=== PATIENT | female | born 1975 | race Caucasian/White ===

== ENCOUNTER 2022-07-05 14:20 | Emergency (ER) | payer BC, SELFPAY ==
--- NOTE | 2022-07-05 | ECG_ITS ---
Measurements Intervals [place] Rate: 73 P: 40 TN: 174 QRS: 44 QRSD: 92 T: 28 QT: 404 QTc: 446 Interpretive Statements SINUS RHYTHM INCOMPLETE RIGHT BUNDLE BRANCH BLOCK BASELINE ARTIFACT- II, III, AVF BORDERLINE ECG NO PREVIOUS ECG AVAILABLE FOR COMPARISON Electronically Signed On 07-08-2022 14:25:17 CDT by Joseph Hanson D.O.
[2022-07-05 14:30] VITALS: BP 152/94; PULSE 78; RESP 18; TEMP 36.8; O2SAT 100
--- NOTE | 2022-07-05 14:51 | ED.GENADULT ---
HPI - General Adult General Chief complaint: Anxiety Stated complaint: anxiety Time Seen by Provider: 07/05/22 14:37 Source: patient and RN notes reviewed Mode of arrival: ambulatory Limitations: no limitations History of Present Illness HPI narrative: Patient presents today complaining of a 10 day history of intermittent sternal chest tightness with increased anxiety. Patient has been feeling anxious recently related to 3 or 4 life changes related to job changes and children graduating college. States she has been more tearful recently as well. Denies radiation of the chest tightness. Denies sweats, nausea vomiting, numbness or tingling in the extremities, shortness of breath, or any additional symptoms. Patient takes bupropion for her anxiety and has been taking the same medication for several years. Related Data Home Medications Medication Instructions Recorded Confirmed bupropion HCl 300 mg 24 hr tablet, 300 mg PO DAILY 07/05/22 07/05/22 extended release Allergies Allergy/AdvReac Type Severity Reaction Status Date / Time No Known Allergies Allergy Verified 07/05/22 14:53 Review of Systems Review of Systems: CONSTITUTIONAL: Denies body aches, fever, chills, or sweats. EYES: Denies visual changes, redness, or discharge. ENT: Denies rhinorrhea, congestion, sore throat, or otalgia. CARDIOVASCULAR: Denies chest pain, palpitations, or edema.+ chest tightness RESPIRATORY: Denies cough or dyspnea. GASTROINTESTINAL: Denies abdominal pain, nausea, vomiting, or diarrhea. GENITOURINARY: Denies dysuria or hematuria. SKIN: Denies rash, itching, or wounds. MUSCULOSKELETAL: Denies back pain, joint pain, or myalgia. NEUROLOGIC: Denies headache, numbness, tingling, or weakness. PSYCH: + increased anxiety [facility] Past Medical History Medical History (Updated 07/05/22 @ 14:59 by Darcie Nunez, KARISHMA, BC) Anxiety Family History Family History Sibling Family history of mental disorder Social History Social History Smoking status: Former smoker Second hand tobacco smoke exposure: No Smoking end date: 02/16/10 Alcohol intake: current Comments At time of signature, I have reviewed and agree with nursing past medical, surgical, social and family history unless otherwise noted. Please see nursing chart for further information. There is no relevant family history pertinent to the presenting complaint Exam Narrative: GENERAL: Well-appearing, well-nourished, tearful. HEAD: Normocephalic, atraumatic. EYES: EOMI. No redness or drainage. Conjunctivae normal. ENT: Mucous membranes pink and moist. NECK: Normal AROM. Supple. No lymphadenopathy. CHEST: No respiratory distress. Clear to auscultation. Chest is nontender HEART: Regular rate and rhythm. No murmur appreciated. Normal peripheral pulses. EXTREMITIES: Normal range of motion. No edema. Hand relocation director equal and strong. Patient has a slight tremor, likely related to anxiety SKIN: Warm, dry, no rash. Capillary refill normal. Normal skin turgor. NEURO: No focal deficits. Alert and oriented x3. Gait steady. PSYCH: Anxious. Course Course Level of Care: Express Care Visit Vital Signs Vital signs: Vital Signs Temperature 98.2 F 07/05/22 14:30 Pulse Rate 78 07/05/22 14:30 Respiratory Rate 18 07/05/22 14:30 Blood Pressure 152/94 H 07/05/22 14:30 Pulse Oximetry 100 07/05/22 14:30 Oxygen Delivery Room Air 07/05/22 14:30 Temperature 98.2 F 07/05/22 14:30 Pulse Rate 78 07/05/22 14:30 Respiratory Rate 18 07/05/22 14:30 Blood Pressure 152/94 H 07/05/22 14:30 Pulse Oximetry 100 07/05/22 14:30 Oxygen Delivery Room Air 07/05/22 14:30 Reviewed. Pt has been instructed to follow up with her PCP regarding her elevated blood pressure today. Medical Decision Making MDM Narrative Medical de
== END 2022-07-05 15:05 | disposition home or self-care (01) ==
PROVIDERS: Emergency Provider Nurse Practitioner; PCP Physician Assistant
DX: F41.0 Panic disorder [episodic paroxysmal anxiety] (principal); Z87.891 Personal history of nicotine dependence; I45.10 Unspecified right bundle-branch block; F41.9 Anxiety disorder, unspecified
CPT/HCPCS: 93005; 99213; G0463

== ENCOUNTER → 2023-03-02 10:15 | Outpatient (CLI) | payer BC, SELFPAY ==
--- NOTE | ~2023-03-02 | US_ITS ---
Pelvic ultrasound. Clinical History: Pelvic pain Technique: Realtime transabdominal and transvaginal scanning of the pelvis was performed. Color flow Doppler and Doppler spectral analysis were performed. Findings: The uterus is anteverted, and measures 8.5 x 4.8 x 5.2 cm. The endometrial stripe has a th ickness of 7 mm. IUD in satisfactory position. Posterior, partially exophytic fibroid measures 2.2 cm in maximum diameter. Lower uterine segment intramural fibroid measures 2.2 cm in maximum diameter.. The right ovary measures 2.7 x 1.1 x 1.5 cm. No significant right ovarian or adnexal mass is seen. The left ovary measures 3.9 x 2.2 x 3.8 cm. Simple left ovarian cyst measures 2.9 cm in diameter. There is no evidence of free fluid in the cul de sac. Impression: Uterine fibroids, as above. IUD in place. 2.9 cm simple left ovarian cyst. Reviewed, dictated and finalized at [facility]. L DESIGNER Impression: Uterine fibroids, as above. IUD in place. 2.9 cm simple left ovarian cyst.
== END ==
PROVIDERS: PCP Advanced Practice Midwife; Visit Provider Advanced Practice Midwife
DX: D25.1 Intramural leiomyoma of uterus (principal); N83.292 Other ovarian cyst, left side; Z97.5 Presence of (intrauterine) contraceptive device
CPT/HCPCS: 76830

== ENCOUNTER 2023-06-03 10:16 | Emergency (ER) | payer BC, SELFPAY ==
[2023-06-03 10:32] VITALS: BP 119/63; PULSE 75; RESP 16; TEMP 36.9; O2SAT 99
--- NOTE | 2023-06-03 10:43 | ED.URI ---
HPI - URI/Sore Throat General Chief Complaint: Upper Respiratory Infection Stated Complaint: SINUS PRESSURE/COUGH Time Seen by Provider: 06/03/23 10:43 Source: patient Mode of arrival: ambulatory Limitations: no limitations History of Present Illness HPI Narrative: 48 yo F presents with c/o sinus congestion/pressure, PND, pressure to both ears and sore lymph nodes to neck. Denies sore throat. Afebrile. Not taking any OTC allergy meds or pain meds to treat symptoms. All systems reviewed and negative except as noted above. Related Data Home Medications Medication Instructions Recorded Confirmed bupropion HCl 300 mg 24 hr tablet, 300 mg PO DAILY 07/05/22 06/03/23 extended release semaglutide 0.25 mg or 0.5 mg (2 See Rx Instructions .Route .COMPLEX 06/03/23 06/03/23 mg/3 mL) subcutaneous pen injector Allergies Allergy/AdvReac Type Severity Reaction Status Date / Time No Known Allergies Allergy Verified 06/06/23 08:26 Review of Systems Review of Systems: CONSTITUTIONAL: Denies fever, chills, or sweats. EYES: Denies visual changes, redness, or discharge. ENT: Reports rhinorrhea, congestion. Denies sore throat. Reports otalgia. CARDIOVASCULAR: Denies chest pain, palpitations, or edema. RESPIRATORY: Denies cough or dyspnea. GASTROINTESTINAL: Denies abdominal pain, nausea, vomiting, or diarrhea. GENITOURINARY: Denies dysuria or hematuria. SKIN: Denies rash or itching. MUSCULOSKELETAL: Denies back pain, joint pain, or myalgia. NEUROLOGIC: Denies headache, numbness, or weakness. PSYCHIATRIC: Denies anxiety or depression. All other systems reviewed are negative, except as documented in HPI. ON LICENSE OF [facility] Past Medical History Medical History Anxiety Family History Family History Sibling Family history of mental disorder Social History Social History Smoking status: Former smoker Second hand tobacco smoke exposure: No Smoking end date: 02/16/10 Alcohol intake: current Comments At time of signature, agree with nursing past medical, surgical, social and family history. There is no relevant family history pertinent to the presenting complaint. Exam Narrative: GENERAL: This is a well-nourished, well-developed patient, in no apparent distress. HEAD: normocephalic, atraumatic. EYES: PERRL. Sclera clear/white. Vision is grossly intact. EARS: External ears normal, auditory canals clear and without drainage, TMs normal without perforation. Hearing grossly intact. NOSE: External nose normal with Mild congestion with erythema to nares. No frontal or maxillary sinus tenderness on palpation. THROAT: Mucous membranes moist, postnasal drainage without erythema or swelling. NECK: Neck supple, non-tender without lymphadenopathy, masses or thyromegaly. CARDIOVASCULAR: Regular rate and rhythm without murmurs, gallops, or rubs. RESPIRATORY: Clear to auscultation. Breath sounds equal bilaterally. No wheezes, rales, or rhonchi. SKIN: warm, Dry, intact with no suspicious lesions or rash, good texture and turgor. NEURO: awake, alert, and oriented to person, place and time. There were no obvious focal neurologic abnormalities. EXTREMITIES: No joint tenderness, effusion, or edema noted. Course Course Level of Care: Express Care Visit Vital Signs Vital signs: Vital Signs Temperature 36.9 C 06/03/23 10:32 Pulse Rate 75 06/03/23 10:32 Respiratory Rate 16 06/03/23 10:32 Blood Pressure 119/63 06/03/23 10:32 Pulse Oximetry 99 06/03/23 10:32 Temperature 36.9 C 06/03/23 10:32 Pulse Rate 75 06/03/23 10:32 Respiratory Rate 16 06/03/23 10:32 Blood Pressure 119/63 06/03/23 10:32 Pulse Oximetry 99 06/03/23 10:32 Reviewed MDM - URI/Sore Throat MDM Narrative Medical decision making narrative: patient well-a
== END 2023-06-03 10:57 | disposition home or self-care (01) ==
PROVIDERS: Emergency Provider Nurse Practitioner Family
DX: J01.90 Acute sinusitis, unspecified (principal); Z87.891 Personal history of nicotine dependence; F41.9 Anxiety disorder, unspecified
CPT/HCPCS: 99211; 99213; G0463

== ENCOUNTER 2023-06-06 08:12 | Emergency (ER) | payer BC, SELFPAY ==
--- NOTE | 2023-06-06 08:18 | ED_ITS ---
HPI - URI/Sore Throat General Chief Complaint: Upper Respiratory Infection Stated Complaint: Cough,Sore Throat,Sinus Problems Time Seen by Provider: 06/06/23 08:18 Source: patient Mode of arrival: ambulatory Limitations: no limitations History of Present Illness HPI Narrative: Patient is a 48-year-old female that presents with 1 week of cough, congestion and new onset sore throat. Patient states she is having more frequent coughing fits lasting several hours. Patient was seen 3 days ago and started on symptomatic medication. Patient reports she is just getting worse. Denies any fever, chills, nausea, vomiting, diarrhea. Related Data Home Medications Medication Instructions Recorded Confirmed bupropion HCl 300 mg 24 hr tablet, 300 mg PO DAILY 07/05/22 06/03/23 extended release semaglutide 0.25 mg or 0.5 mg (2 See Rx Instructions .Route .COMPLEX 06/03/23 06/03/23 mg/3 mL) subcutaneous pen injector Allergies Allergy/AdvReac Type Severity Reaction Status Date / Time No Known Allergies Allergy Verified 06/06/23 08:26 Review of Systems Review of Systems: All systems reviewed & are unremarkable except as noted in HPI and below Constitutional: Constitutional: Denies body ache(s), Denies chills, Denies fatigue, Denies fever(s), Denies headache(s), Denies malaise and Denies weakness Eyes: Eyes: Denies blurry vision, Denies itchy eyes and Denies loss of vision ENT: Denies otalgia, Denies headache(s), Reports nasal congestion, Denies sinus pain and Reports sore throat Cardiovascular: Cardiovascular: Denies chest pain, Denies irregular heart rhythm and Denies dyspnea Respiratory: Respiratory: Reports cough and Denies dyspnea Gastrointestinal: Gastrointestinal: Denies abdominal pain, Denies diarrhea, Denies nausea and Denies vomiting Musculoskeletal: Musculoskeletal: Denies back pain, Denies myalgias and Denies arthralgias Integumentary/Breasts: Skin/Breast: Denies pruritus and Denies rash Neurologic: Denies headache(s), Denies loss of vision and Denies weakness Psychiatric: Psychiatric: Reports no additional psychiatric complaints Endocrine: Endocrine: Denies fatigue Allergic/Immunologic: Allergic/Immunologic: Denies itchy eyes PMFSH Past Medical History Medical History Anxiety Family History Family History Sibling Family history of mental disorder Social History Social History Smoking status: Former smoker Second hand tobacco smoke exposure: No Smoking end date: 02/16/10 Alcohol intake: current Comments At time of signature, agree with nursing past medical, surgical, social and family history. There is no relevant family history pertinent to the presenting complaint. Exam Const: General: cooperative, healthy appearing, comfortable, no acute distress and well nourished Nutritional Appearance: well nourished Orientation/consciousness: patient oriented x3 Limitations: no limitations HENMT: Head: normal to inspection, normocephalic and atraumatic Ears: hearing grossly normal bilaterally, external ears normal, EAC's normal, no periauricular adenopathy and TM abnormal wth effusion serous bilateral Face/Nose/Sinus: Normal external nose present, Abnormal mucous membranes and turbinates present erythematous bilateral and diffuse, normal facial exam, sinuses nontender and face symmetric Face and sinus: normal facial exam, sinuses nontender and face symmetric Mouth: Yes Normal oral and palatal mucosa present, Yes lip normal, Yes tongue normal, Yes Normal salivary glands and ducts present, Yes oropharynx normal and Yes moist mucous membranes Teeth and gingiva: dentition normal Throat: posterior oropharynx normal, tonsils normal and uvula midline Eyes: General: appearance normal, both eyes and all related structures Alignment and Position: alignment normal and position normal Periorbital: periorbital findings normal Eyelids: eyelids normal Pupils: Equal, round and reactive pupils present Neck: Neck: normal visual inspection, full ROM, no lymphadenopathy and supple Chest: Chest palpation & inspection: normal inspection of the chest and normal palpation of entire chest wall Resp: Effort & Inspection: normal respiratory effort and able to speak in complete sentences Auscultation: clear to auscultation bilaterally, no crackles, no rales, no rhonchi and no wheezes Cardio: Rate: regular rate Rhythm: regular rhythm Heart sounds: S1 normal heart sound present and S2 normal heart sound present GI: Inspection: normal to inspection Skin: General skin exam: normal color and no rashes or lesions noted Neuro: General: patient oriented x3 and moves all extremities Cranial nerves: Yes Equal, round and reactive pupils present Speech: normal speech Gait exam (Neuro): Normal gait present Extrem: General: normal to inspection, full ROM and no edema Psych: Appearance: grossly normal and well kempt Mental Status: mental status grossly normal Speech and movement: Normal speech and movement present Affect: normal affect Attitude: cooperative Thought process: Normal thought process present Course Course Emergency Course: Patient is aware of diagnosis, understands and agrees to treatment plan. Anticipatory guidance given. Patient agrees to follow-up as directed and is aware of reasons to seek care at the emergency department. Portions of this record may have been created with voice recognition software Level of Care: Express Care Visit Vital Signs Vital signs: Vital Signs Temperature 36.3 C L 06/06/23 08:34 Pulse Rate 89 06/06/23 08:34 Respiratory Rate 16 06/06/23 08:34 Blood Pressure 110/67 06/06/23 08:34 Pulse Oximetry 99 06/06/23 08:34 Temperature 36.3 C L 06/06/23 08:34 Pulse Rate 89 06/06/23 08:34 Respiratory Rate 16 06/06/23 08:34 Blood Pressure 110/67 06/06/23 08:34 Pulse Oximetry 99 06/06/23 08:34 Reviewed MDM - URI/Sore Throat MDM Narrative Medical decision making narrative: Discharge instructions reviewed with patient, as well as provided in writing per nursing staff. The instructions also include specific and strict return/GO TO THE ER as well as f/u information. All questions have been answered, and the patient deny any further questions with discharge and discharge plan. Differential diagnosis considered: Flores virus, strep pharyngitis, allergic rhinitis, upper respiratory tract infection, sinusitis, rhinosinusitis, nasopharyngitis. viral pharyngitis, otitis media, otitis externa, otitis effusion, foreign body, cerumen impaction, viral syndrome, and influenza.? Exam findings show no acute concerns or changes; patient is non-toxic appearing and is in no distress.? Patient is appropriate for outpatient treatment and follow- up.? Medical Records Attestation: I reviewed the patient's medical records. Lab Data Attestation: I reviewed the patient's lab results. Labs: Strep Screen Presumptive Negative *(Reference Range: Negative)* Discharge Plan Discharge Clinical Impression: Upper respiratory infection with cough and congestion Patient Disposition: Home, Self-Care Condition: Stable Instructions: Upper Respiratory Infection (ED) Additional Instructions: Take antibiotic as prescribed. Take steroids in the morning with food. Use Tessalon Perles as needed for cough. Use inhaler with spacer as needed. Other symptomatic treatments include: -Alternate Tylenol and Motrin per package directions for fever or pain. -Antihistamine medication such as Benadryl at night and Zyrtec/Claritin/Marjorie during the day can help improve symptoms. -Use Flonase twice a day for 5 days then daily to help reduce the inflammation and dry up your sinuses. -You can also use Sudafed or Mucinex. Be sure to drink plenty of water with these medications at least 8 ounces with every dose and it is important to drink 8 to 10 glasses of water per day. Water is a natural decongestant -Eat and drink things that are easy to swallow, like tea or soup, or popsicles. -Oral rinses such as: Salt water gargles and/or may use topical anesthetic (eg. Chloraseptic spray) or lozenges to relieve dryness or throat pain). -Frequent hand washing or hand vocational technical education teacher is one of the best ways to prevent spread of infection. -Using a vaporizer or humidifier at night will also help thin secretions and help with coughing up phlegm. -Follow up with primary care provider in 3-5 days if condition is not improving - For new or worsening symptoms go directly to the nearest ER Prescriptions: New albuterol sulfate 90 mcg/actuation HFA aerosol inhaler 2 puff inhalation QID PRN (Reason: shortness of breath or wheezing) Qty: 6.7 0RF (DME) Aerochamber MV Spacer See Rx Instructions .Route Qty: 1 0RF Rx Instructions: As directed benzonatate 200 mg capsule 200 mg PO TID Qty: 20 0RF prednisone 20 mg tablet 40 mg PO DAILY 5 Days Qty: 10 0RF doxycycline monohydrate 100 mg tablet 100 mg PO BID 5 Days Qty: 10 0RF No Action bupropion HCl 300 mg tablet extended release 24 hr 300 mg PO DAILY hydroxyzine HCl 50 mg tablet 50 mg PO QID PRN (Reason: anxiety) Qty: 20 0RF semaglutide 0.25 mg or 0.5 mg (2 mg/3 mL) Pen Injector See Rx Instructions .ROUTE .COMPLEX Rx Instructions: for 4 weeks benzonatate 200 mg capsule 200 mg PO TID PRN (Reason: cough) Qty: 20 0RF fluticasone propionate [Flonase Allergy Relief] 50 mcg/actuation spray,suspension 1 spray intranasal BID Qty: 16 0RF Rx Instructions: administer into each nostril Claritin-D 12 Hour 5-120 mg tablet extended release 12 hr 1 tablet PO Q12H PRN (Reason: nasal congestion) Qty: 20 0RF Follow-up/Referrals: PHYSICIAN,TRANSITION TEACHER [Primary Care Provider] - Niesha Ferguson DO [Physician] - 3 Days Stand Alone Forms: Work/School Release IP Time of Disposition: 09:02
[2023-06-06 08:34] VITALS: BP 110/67; PULSE 89; RESP 16; TEMP 36.3; O2SAT 99
== END 2023-06-06 09:07 | disposition home or self-care (01) ==
PROVIDERS: Emergency Provider Nurse Practitioner Family
DX: J06.9 Acute upper respiratory infection, unspecified (principal); Z87.891 Personal history of nicotine dependence; F41.9 Anxiety disorder, unspecified
CPT/HCPCS: 87081; 87880; 99213; G0463

== ENCOUNTER 2023-08-04 15:54 | Emergency (ER) | payer BC, SELFPAY ==
--- NOTE | ~2023-08-04 | XR_ITS ---
EXAMINATION: XR ribs LT 2V Exam Date/Time: 08/04/2023 16:10 CDT HISTORY: fall today left lower anterior rib pain Comparison: 02/19/2016. RESULT: Lines, tubes, and devices: Left breast implant (right breast not included in the field of view). Lungs and pleura: Clear. Cardiothymic silhouette: Stable. Other: No acute osseous or upper abdominal finding. Mild scoliosis. IMPRESSION: No acute cardiopulmonary process. No acute osseous finding in the left ribs. Reviewed, dictated and finalized at location [facility].
--- NOTE | 2023-08-04 15:57 | ED.FEMALEGU ---
HPI - Female Genitourinary General Chief complaint: Urogenital-Female Stated complaint: Uti Symptoms/Side Pain Time Seen by Provider: 08/04/23 15:56 Source: patient Mode of arrival: ambulatory Limitations: no limitations History of Present Illness HPI Narrative: Patient is a 40-year-old female who presents with 3 days of urinary urgency, frequency and burning with urination. Patient also reports vaginal spotting. Patient has IUD and has not had period in a year. Patient denies any low back pain but does have pelvic pressure. Denies any fever, chills, nausea, vomiting, diarrhea. Patient also coming in for left rib pain after falling into tailgate 1 hour ago. Patient states it hurts to cough, laugh or twist. Patient has not taken anything for symptoms. MD elicited complaint: dysuria Related Data Home Medications Medication Instructions Recorded Confirmed bupropion HCl 300 mg 24 hr tablet, 300 mg PO DAILY 07/05/22 06/06/23 extended release semaglutide 0.25 mg or 0.5 mg (2 See Rx Instructions .Route .COMPLEX 06/03/23 06/06/23 mg/3 mL) subcutaneous pen injector Allergies Allergy/AdvReac Type Severity Reaction Status Date / Time No Known Allergies Allergy Verified 06/06/23 08:26 Review of Systems Review of Systems: All systems reviewed & are unremarkable except as noted in HPI and below Constitutional: Constitutional: Denies chills, Denies fever(s), Denies headache(s), Denies malaise and Denies weakness Eyes: Eyes: Denies change in vision, Denies eye discharge and Denies irritation ENT: Denies otalgia, Denies headache(s), Denies nasal congestion, Denies nasal discharge, Denies sinus pain and Denies sore throat Cardiovascular: Cardiovascular: Denies chest pain, Denies edema, Denies palpitations and Denies dyspnea Respiratory: Respiratory: Denies cough, Denies dyspnea and Reports other (Rib pain) Gastrointestinal: Gastrointestinal: Denies abdominal pain, Denies diarrhea, Denies nausea and Denies vomiting Genitourinary: Genitourinary: Denies hematuria, Reports nocturia, Reports dysuria, Denies flank pain and Reports urinary urgency Musculoskeletal: Musculoskeletal: Denies back pain and Denies numbness Integumentary/Breasts: Skin/Breast: Denies pruritus and Denies rash Neurologic: Denies headache(s), Denies numbness and Denies weakness Psychiatric: Psychiatric: Reports no additional psychiatric complaints Endocrine: Endocrine: Denies palpitations PMFSH Past Medical History Medical History Anxiety Family History Family History Sibling Family history of mental disorder Social History Social History Smoking status: Former smoker Second hand tobacco smoke exposure: No Smoking end date: 02/16/10 Alcohol intake: current Comments At time of signature, agree with nursing past medical, surgical, social and family history. There is no relevant family history pertinent to the presenting complaint. Exam Const: General: cooperative, healthy appearing, comfortable, no acute distress and well nourished Nutritional Appearance: well nourished Orientation/consciousness: patient oriented x3 HENMT: Head: normocephalic and atraumatic Ears: external ears normal Face/Nose/Sinus: Normal external nose present, Normal nares present and normal facial exam Face and sinus: normal facial exam Eyes: General: appearance normal, both eyes and all related structures Pupils: Equal, round and reactive pupils present EOM: EOMs intact bilaterally Neck: Neck: normal visual inspection, full ROM and supple Chest: Chest palpation & inspection: normal inspection of the chest and tenderness rib left mid-clavicular line involving the 6th rib, involving the 7th rib and involving the 8th rib Resp: Effort & Inspection: normal respiratory effort and able to speak
[2023-08-04 16:02] VITALS: BP 134/76; PULSE 73; RESP 20; TEMP 36.6; O2SAT 100
== END 2023-08-04 16:45 | disposition home or self-care (01) ==
PROVIDERS: Emergency Provider Nurse Practitioner Family
DX: N30.00 Acute cystitis without hematuria (principal); B96.20 Unspecified Escherichia coli [E. coli] as the cause of diseases classified elsewhere; S20.212A Contusion of left front wall of thorax, initial encounter; W22.8XXA Striking against or struck by other objects, initial encounter; F41.9 Anxiety disorder, unspecified; Z87.891 Personal history of nicotine dependence
CPT/HCPCS: 71100; 81003; 87077; 87086; 87088; 87186; 99213; G0463

== ENCOUNTER 2023-08-20 09:15 | Emergency (ER) | payer BC, SELFPAY ==
--- NOTE | 2023-08-20 09:17 | ED.FALL ---
HPI - Fall General Chief Complaint: Fall Stated Complaint: FALL/L RIB INJURY Time Seen by Provider: 08/20/23 09:45 Source: patient and RN notes reviewed Mode of arrival: ambulatory Limitations: no limitations History of Present Illness HPI Narrative: 40-year-old female presents with concern for ongoing left anterior rib pain. She reports 17 days ago she fell into a tailgate of a truck causing pain under her left breast. She was seen here at that time and had a negative rib x-ray. She reports she has been taking 800 mg ibuprofen intermittently, no more than once a day which does help symptoms briefly. She reports the pain is waking her up at night. She was also seen and treated for urinary tract infection that day. She reports her symptoms of urinary tract infection are resolved. She denies any fever, hematuria, back ache, stomach ache, nausea, vomiting, dysuria, frequency, urgency. She denies shortness of breath. She reports rib pain is exacerbated by coughing, deep breathing, certain motions. MD complaint: fall Related Data Home Medications Medication Instructions Recorded Confirmed semaglutide 0.25 mg or 0.5 mg (2 See Rx Instructions .Route .COMPLEX 06/03/23 08/20/23 mg/3 mL) subcutaneous pen injector Allergies Allergy/AdvReac Type Severity Reaction Status Date / Time No Known Allergies Allergy Verified 08/20/23 09:32 Review of Systems Review of Systems: CONSTITUTIONAL: Denies malaise, chills, sweats, or fever. CARDIOVASCULAR: Denies chest pain, palpitations, or edema. RESPIRATORY: Denies cough or dyspnea. SKIN: Denies rash or itching, bruising, redness, swelling. MUSCULOSKELETAL: Reports left anterior rib pain NEUROLOGIC: Denies numbness, weakness All systems reviewed & are unremarkable except as noted in HPI and below [facility] Past Medical History Medical History Anxiety Family History Family History Sibling Family history of mental disorder Social History Social History Smoking status: Former smoker Second hand tobacco smoke exposure: No Smoking end date: 02/16/10 Alcohol intake: current Comments At time of signature, agree with nursing past medical, surgical, social and family history. There is no relevant family history pertinent to the presenting complaint Exam Narrative: GENERAL: Well-appearing, well-nourished, and in no acute distress. HEAD: Normocephalic, atraumatic. EYES: PERRLA, sclera clear, and EOMI. No nystagmus. ENT: Nares clear. Mucous membranes moist. NECK: Supple. CHEST: No respiratory distress. Clear to auscultation. No bony deformities, no asymmetry. Speaks in full sentences. Tenderness under the left breast HEART: Regular rate and rhythm. No murmur heard. Normal peripheral pulses. ABDOMEN: Soft, nontender, nondistended, normal active bowel sounds, no palpable masses. No CVA tenderness EXTREMITIES: Normal range of motion. No edema. Normal strength and sensation. SKIN: Warm, dry, no visible rash. NEURO: Alert and oriented x3. PSYCH: Normal mood and affect Course Course Emergency Course: Patient was treated with Bactrim for urinary tract infection, urine culture showed resistance to Bactrim however due to clerical error there was no change in antibiotic made for the patient. Although patient is not reporting urine symptoms I did check a urinalysis which appeared normal, just to be safe I will do a culture of her urine due to the previous resistance. Anticipatory guidance given. Patient agrees to follow-up as directed and is aware of reasons to seek care at the emergency department. Portions of this record may have been created with voice recognition software Level of Care: Express Care Visit Vital Signs Vital signs: Reviewed. MDM - Fall MDM Narrative Medical decision making narrative:
[2023-08-20 09:33] VITALS: BP 133/86; PULSE 64; RESP 16; TEMP 36.4; O2SAT 100
[2023-08-20 09:44] LABS: EDUAAPPEAR Clear; EDUABILI Negative; EDUABLOOD Negative; EDUACOLOR1 Yellow; EDUAGLUCOSE Negative; EDUAKETONE Negative; EDUALEUKO Negative; EDUANITRATE Negative; EDUAPROTEIN Negative; EDUASPGRAVITY 1.015; EDUAUROBILI 0.2
== END 2023-08-20 10:03 | disposition home or self-care (01) ==
PROVIDERS: Emergency Provider Nurse Practitioner
DX: R07.81 Pleurodynia (principal); Z87.891 Personal history of nicotine dependence
CPT/HCPCS: 81003; 87086; 99213; G0463

== ENCOUNTER 2024-04-07 08:28 | Emergency (ER) | payer BC, SELFPAY ==
[2024-04-07 08:41] VITALS: BP 118/81; PULSE 97; RESP 16; TEMP 37.3; O2SAT 99
--- NOTE | 2024-04-07 08:47 | ED_ITS ---
HPI - URI/Sore Throat General Chief Complaint: Upper Respiratory Infection Stated Complaint: Flu Symptoms Time Seen by Provider: 04/07/24 08:47 Source: patient Mode of arrival: ambulatory Limitations: no limitations History of Present Illness HPI Narrative: 49-year-old female presents with complaint of headache, body aches, fatigue, congestion and coughing for 3 days. Denies nausea vomiting diarrhea. Taking ibuprofen to treat pain and fever. Patient reports recent face lift surgery. No complaints of surgical complications at this time. All systems reviewed and negative except as noted above. Related Data Home Medications ?Medication ?Instructions ?Recorded ?Confirmed ?Last Taken ?Type semaglutide 0.25 mg or 0.5 mg (2 See Rx Instructions .Route .COMPLEX 06/03/23 04/07/24 Unknown History mg/3 mL) subcutaneous pen injector hydrocodone 5 mg-acetaminophen 325 tablet 04/07/24 Unknown History mg tablet minoxidil 2.5 mg tablet mg 04/07/24 Unknown History Allergies Allergy/AdvReac Type Severity Reaction Status Date / Time No Known Allergies Allergy Verified 04/07/24 08:38 Review of Systems Review of Systems: CONSTITUTIONAL: Reports fever, chills, or sweats. EYES: Denies visual changes, redness, or discharge. ENT: Reports rhinorrhea, congestion, sore throat. Denies otalgia. CARDIOVASCULAR: Denies chest pain, palpitations, or edema. RESPIRATORY: Reports cough. Denies dyspnea. GASTROINTESTINAL: Denies abdominal pain, nausea, vomiting, or diarrhea. GENITOURINARY: Denies dysuria or hematuria. SKIN: Denies rash or itching. MUSCULOSKELETAL: Denies back pain, joint pain, or myalgia. NEUROLOGIC: Denies headache, numbness, or weakness. PSYCHIATRIC: Denies anxiety or depression. All other systems reviewed are negative, except as documented in HPI. [facility] Past Medical History Medical History Anxiety Family History Family History Sibling Family history of mental disorder Social History Social History Smoking status: Former smoker Second hand tobacco smoke exposure: No Smoking end date: 02/16/10 Alcohol intake: current Comments At time of signature, agree with nursing past medical, surgical, social and family history. There is no relevant family history pertinent to the presenting complaint. Exam Narrative: GENERAL: This is a well-nourished, well-developed patient, ill-appearing but no acute distress HEAD: normocephalic, atraumatic. EYES: PERRL. Sclera clear/white. Vision is grossly intact. EARS: External ears normal, auditory canals clear and without drainage, TMs normal without perforation. Hearing grossly intact. NOSE: External nose normal with clear nasal drainage, mild congestion THROAT: Mucous membranes moist, posterior pharynx clear. NECK: Neck supple, non-tender without lymphadenopathy, masses or thyromegaly. CARDIOVASCULAR: Regular rate and rhythm without murmurs, gallops, or rubs. RESPIRATORY: Clear to auscultation. Breath sounds equal bilaterally. No wheezes, rales, or rhonchi. SKIN: warm, Dry, intact with no suspicious lesions or rash, good texture and turgor. NEURO: awake, alert, and oriented to person, place and time. There were no obvious focal neurologic abnormalities. EXTREMITIES: No joint tenderness, effusion, or edema noted. Course Course Level of Care: Express Care Visit Vital Signs Vital signs: Vital Signs Temperature 37.3 C 04/07/24 08:41 Pulse Rate 97 04/07/24 08:41 Respiratory Rate 16 04/07/24 08:41 Blood Pressure 118/81 04/07/24 08:41 Pulse Oximetry 99 04/07/24 08:41 Temperature 37.3 C 04/07/24 08:41 Pulse Rate 97 04/07/24 08:41 Respiratory Rate 16 04/07/24 08:41 Blood Pressure 118/81 04/07/24 08:41 Pulse Oximetry 99 04/07/24 08:41 Reviewed MDM - URI/Sore Throat MDM Narrative Medical decision making narrative: Positive influenza a. Patient is alert, nontoxic. Recommend [id number] DayQuil NyQuil cold and flu, continue ibuprofen, hydrate. Please be advised this is a medical document. It is intended for [id number] communication. It is written in medical language and may contain unfamiliar abbreviations or verbiage. Medical documents are intended to carry relevant information, facts as evident, and the clinical opinion of the practitioner at the time of the encounter. This report may have been done utilizing a voice recognition system. Attempts have been made to correct errors. However, there may be uncorrected grammatical, spelling, and recognition errors present. The file time of this note does not necessarily represent the time of service. Differential Diagnosis Differential diagnosis: Likely upper respiratory infection, sinusitis, viral infection and influenza Lab Data Labs: Lab Results 04/07/24 Range/Units 08:47 POC Influenza A Ag Positive (Negative) POC Influenza B Ag Negative (Negative) POC SARS CoV-2 Ag Negative (Negative) Discharge Plan Discharge Clinical Impression: Influenza A Patient Disposition: Home, Self-Care Condition: Stable Instructions: Influenza (ED) Additional Instructions: You were positive for influenza today. Influenza is a virus and symptoms may last 10-14 days. Taking [id number] medications to treat her symptoms such as DayQuil NyQuil cold and flu. Take as directed on packaging. Take ibuprofen every 6-8 hours as needed for pain and fever. Drink at least 64 oz of water a day. Follow-up with your doctor if symptoms are not improving. Patient Language: Jordanian Prescriptions: New ibuprofen 800 mg tablet 800 mg PO TID PRN (Reason: pain) Qty: 30 0RF No Action cyclobenzaprine 10 mg tablet 10 mg PO TID PRN (Reason: muscle spasm) Qty: 20 0RF ibuprofen 800 mg tablet 800 mg PO Q6H PRN (Reason: pain) Qty: 30 0RF hydrocodone-acetaminophen 5-325 mg tablet minoxidil 2.5 mg tablet semaglutide 0.25 mg or 0.5 mg (2 mg/3 mL) Pen Injector See Rx Instructions .ROUTE .COMPLEX Rx Instructions: for 4 weeks Follow-up/Referrals: Yvette,Darcie Israel, PACKING SUPERVISOR [Primary Care Provider] - Stand Alone Forms: Work/School Release IP Time of Disposition: 08:59
[2024-04-07 08:49] LABS: EDCOVIDSCREEN Negative (Negative); EDINFLUASCREEN Positive (Negative); EDINFLUBSCREEN Negative (Negative)
== END 2024-04-07 09:04 | disposition home or self-care (01) ==
PROVIDERS: Emergency Provider Nurse Practitioner Family; PCP Nurse Practitioner Family
DX: J10.1 Influenza due to other identified influenza virus with other respiratory manifestations (principal); Z20.822 Contact with and (suspected) exposure to COVID-19; Z87.891 Personal history of nicotine dependence
CPT/HCPCS: 87426; 87804; 99213; G0463

== ENCOUNTER 2024-11-06 16:22 | Emergency (ER) | payer BC, SELFPAY ==
[2024-11-06 16:35] VITALS: BP 128/87; PULSE 79; RESP 16; TEMP 36.2; O2SAT 99
--- NOTE | 2024-11-06 16:38 | ED.SKABFB ---
HPI - Skin/Abscess/Foreign Bdy General Chief complaint: Skin/Abscess/Foreign Body Stated complaint: RASH Time Seen by Provider: 11/06/24 16:37 Source: patient and RN notes reviewed Mode of arrival: ambulatory Limitations: no limitations History of Present Illness HPI narrative: 49-year-old female presents concern for rash on her back. She reports she noticed an itchy, slightly burning rash today, reports she had itching and slight burning to the area before the rash appeared for the last couple of days. She reports general pain around her trapezius muscle area. MD complaint: rash Related Data Home Medications ?Medication ?Instructions ?Recorded ?Confirmed ?Last Taken ?Type semaglutide 0.25 mg or 0.5 mg (2 See Rx Instructions .Route .COMPLEX 06/03/23 04/07/24 Unknown History mg/3 mL) subcutaneous pen injector hydrocodone 5 mg-acetaminophen 325 tablet 04/07/24 Unknown History mg tablet minoxidil 2.5 mg tablet 2.5 mg 04/07/24 Unknown History bupropion HCl 300 mg 24 hr tablet, mg PO 11/06/24 Unknown History extended release Allergies Allergy/AdvReac Type Severity Reaction Status Date / Time No Known Allergies Allergy Verified 11/06/24 16:40 Review of Systems Review of Systems: CONSTITUTIONAL: Denies malaise, chills, sweats, or fever. EYES: Denies redness, or discharge. ENT: Denies rhinorrhea, congestion, swollen lips, swollen tongue CARDIOVASCULAR: Denies chest pain, palpitations, or edema. RESPIRATORY: Denies cough or dyspnea. GASTROINTESTINAL: Denies abdominal pain, nausea, vomiting SKIN: Reports rash on the left shoulder blade MUSCULOSKELETAL: Denies joint pain or myalgia. NEUROLOGIC: Denies headache. All systems reviewed & are unremarkable except as noted in HPI and below [facility] Past Medical History Medical History Anxiety Family History Family History Sibling Family history of mental disorder Social History Social History Smoking status: Former smoker Second hand tobacco smoke exposure: No Smoking end date: 02/16/10 Alcohol intake: current Comments At time of signature, agree with nursing past medical, surgical, social and family history. There is no relevant family history pertinent to the presenting complaint Exam Narrative: GENERAL: Well-appearing, well-nourished, and in no acute distress. HEAD: Normocephalic, atraumatic. EYES: PERRLA, conjunctivae clear, and EOMI. ENT: Mucous membranes moist. Oropharynx without edema, erythema or lesions. NECK: Supple. No lymphadenopathy CHEST: Clear to auscultation. No respiratory distress. HEART: Regular rate and rhythm. SKIN: Warm, dry. Zosteriform rash on the left shoulder blade NEURO: Alert and oriented x3. PSYCH: Normal mood and affect Course Course Emergency Course: Patient is aware of diagnosis, understands and agrees to treatment plan. Anticipatory guidance given. Patient agrees to follow-up as directed and is aware of reasons to seek care at the emergency department. Portions of this record may have been created with voice recognition software Level of Care: Express Care Visit Vital Signs Vital signs: Vital Signs Temperature 97.1 F L 11/06/24 16:35 Pulse Rate 79 11/06/24 16:35 Respiratory Rate 16 11/06/24 16:35 Blood Pressure 128/87 11/06/24 16:35 Pulse Oximetry 99 11/06/24 16:35 Temperature 97.1 F L 11/06/24 16:35 Pulse Rate 79 11/06/24 16:35 Respiratory Rate 16 11/06/24 16:35 Blood Pressure 128/87 11/06/24 16:35 Pulse Oximetry 99 11/06/24 16:35 Reviewed. MDM - Skin/Abscess/Foreign Bdy MDM Narrative Medical decision making narrative: Does not appear at this time to be erythema multiforme, bullous, SJS, TEN; no evidence at this time to suggest RMSF, endocarditis or Lyme disease; patient looks well, nontoxic and is tolerating oral intake; no neurologic signs or symptoms; no headache, photophobia or neck pain; afebrile; appropriate for initial outpatient treatment; discussed the importance of follow-up, patient agrees; question, viral exanthema, contact dermatitis, allergic dermatitis, eczema, urticaria, shingles. No soft palate or uvula edema, no tongue, lip edema or other mucosal involvement, no respiratory compromise, no stridor, no wheezing, no wheezing, no history of syncope, no hypotension, no nausea, vomiting, or diarrhea. Instructed patient to go to nearest ER immediately for any worsening symptoms including but not limited to: fever, spreading rash, pain, sore throat, headache, dizziness, chest pain, trouble breathing, or any symptoms concerning to the patient. Critical Care Time Critical Care Time Critical Care Time: No Discharge Plan Discharge Clinical Impression: Shingles Patient Disposition: Home Condition: Stable Instructions: Shingles (ED) Additional Instructions: Alternate Tylenol and Motrin for pain, body aches, fever. You may take 2 regular strength Tylenol every 4 hours, alternate with 3 regular strength Motrin every 6 hours so you are taking something every 2-3 hours. Apply topical pain medicine and take antiviral medicine as prescribed. Shingles pain can last weeks, sometimes months. If your pain persists after antiviral medication is complete please follow-up with your primary care provider for a long-term pain control plan. Follow-up with your doctor in the next 2 to 3 days. Go to the emergency room if you have any urgent concerns. Patient Language: Citizen Of [place] Prescriptions: New valacyclovir 1 gram tablet 1,000 mg PO TID 7 Days Qty: 21 0RF No Action cyclobenzaprine 10 mg tablet 10 mg PO TID PRN (Reason: muscle spasm) Qty: 20 0RF ibuprofen 800 mg tablet 800 mg PO Q6H PRN (Reason: pain) Qty: 30 0RF hydrocodone-acetaminophen 5-325 mg tablet minoxidil 2.5 mg tablet 2.5 mg ibuprofen 800 mg tablet 800 mg PO TID PRN (Reason: pain) Qty: 30 0RF semaglutide 0.25 mg or 0.5 mg (2 mg/3 mL) Pen Injector See Rx Instructions .ROUTE .COMPLEX Rx Instructions: for 4 weeks bupropion HCl 300 mg tablet extended release 24 hr PO Follow-up/Referrals: Yvette,Darcie Israel APRN [Primary Care Provider, Unknown] Time of Disposition: 16:45
== END 2024-11-06 16:50 | disposition home or self-care (01) ==
PROVIDERS: Emergency Provider Nurse Practitioner; PCP Nurse Practitioner Family
DX: B02.9 Zoster without complications (principal); F41.9 Anxiety disorder, unspecified; Z87.891 Personal history of nicotine dependence
CPT/HCPCS: 99213; G0463

== ENCOUNTER 2025-01-27 14:42 | Emergency (ER) | payer BC, SELFPAY ==
--- NOTE | 2025-01-27 14:46 | ED_ITS ---
HPI - Wound/Laceration General Chief Complaint: Wound/Laceration Stated Complaint: Stitches Time Seen by Provider: 01/27/25 14:45 Source: patient Mode of arrival: ambulatory Limitations: no limitations History of Present Illness HPI narrative: patient is a 49-year-old female that presents for wound check. Patient had bilateral bra line lift in [place] one week ago. today patient is having left axilla pain and is concerned the wound is opening. patient reports the pain is a burning sensation in digit to place Steri-Strips over the site at home. Denies any active drainage from area, surrounding redness, fever, chills, nausea, vomiting, diarrhea. Related Data Home Medications ?Medication ?Instructions ?Recorded ?Confirmed ?Last Taken ?Type semaglutide 0.25 mg or 0.5 mg (2 See Rx Instructions . Route .COMPLEX 06/03/23 04/07/24 Unknown History mg/3 mL) subcutaneous pen injector minoxidil 2.5 mg tablet 2.5 mg 04/07/24 Unknown His tory bupropion HCl 300 mg 24 hr tablet, mg PO 11/06/24 Unk nown History extended release Allergies Allergy/AdvReac Type Severity Reaction Status Date / Time No Known Allergies Allergy Verified 01/27/25 14:44 Review of Systems 2 Review of Systems: All systems reviewed & are unremarkable except as noted in HPI and below Constitutional: Constitutional: Denies body ache(s), Denies chills, Denies fatigue, Denies fever(s), Denies headache(s), Denies malaise and Denies weakness Eyes: Eyes: Denies blurry vision, Denies irritation and Denies loss of vision ENT: Denies otalgia, Denies headache(s), Denies nasal discharge, Denies sinus pain and Denies sore throat Cardiovascular: Cardiovascular: Denies chest pain, Denies irregular heart rhythm and Denies dyspnea Respiratory: Respiratory: Denies dyspnea Gastrointestinal: Gastrointestinal: Denies abdominal pain, Denies melena, Denies hematochezia, Denies diarrhea, Denies nausea and Denies vomiting Musculoskeletal: Musculoskeletal: Denies back pain, Denies myalgias and Denies arthralgias Integumentary/Breasts: Skin/Breast: Denies pruritus, Denies rash and Reports wounds Neurologic: Denies headache(s), Denies loss of vision and Denies weakness Psychiatric: Psychiatric: Reports no additional psychiatric complaints Endocrine: Endocrine: Denies fatigue PMFSH Past Medical History Medical History Anxiety Family History Family History Sibling Family history of mental disorder Social History Social History Smoking status: Former smoker Second hand tobacco smoke exposure: No Smoking end date: 02/16/10 Alcohol intake: current Comments At time of signature, agree with nursing past medical, surgical, social and family history. There is no relevant family history pertinent to the presenting complaint. Exam 2 Const: General: cooperative, healthy appearing, comfortable, no acute distress and well nourished Nutritional Appearance: well nourished O rientation/consciousness: patient oriented x3 Limitations: no limitations HENMT: Head: normal to inspection, normocephalic and atraumatic Ears: h earing grossly normal bilaterally and external ears normal Face/Nose/Sinus: N ormal external nose present, normal facial exam and face symmetric Face and sinus: normal facial exam and face symmetric Mouth: Yes lip normal Eyes: General: appearance normal, both eyes and all related structures A lignment and Position: alignment normal and position normal Periorbital: p eriorbital findings normal Eyelids: eyelids normal Pupils: Equal, round and reactive pupils present EOM: EOMs intact bilaterally Neck: Neck: normal visual inspection, full ROM and supple Chest: Chest palpation & inspection: normal inspection of the chest Chest/axillae images: 1. Surgical site with surgical tape over area. 2. 1 cm area that is not covered by vora rgical tape. Well-approximated and healing. No active drainage or surrounding erythema 3. point tenderness on palpation with n o induration or nodules felt Resp: Effort & Inspection: normal respiratory effort and able to speak in complete sentences Auscultation: clear to auscultation bilaterally Cardio: Rate: regular rate Rhythm: regular rhythm Heart sounds: S1 normal heart sound present and S2 normal heart sound present GI: Inspection: normal to inspection Skin: General skin exam: normal color and no rashes or lesions noted Neuro: General: patient oriented x3 and moves all extremities Cranial nerves: Yes Equal, round and reactive pupils present Speech: normal speech Gait exam (Neuro): Normal gait present Extrem: General: normal to inspection, full ROM and no edema Psych: Appearance: grossly normal and well kempt Mental Status: mental status grossly normal Speech and movement: Normal speech and movement present Affect: normal affect Attitude: cooperative Thought process: Normal thought process present Course Course Emergency Course: Patient is aware of diagnosis, understands and agrees to treatment plan. Anticipatory guidance given. Patient agrees to follow-up as directed and is aware of reasons to seek care at the emergency department. Portions of this record may have been created with voice recognition software Level of Care: Express Care Visit MDM MDM Narrative Medical decision making narrative: Steri-Strips were placed over end of surgical site. patient is going to text the surgeon pictures of wound. Patient did not take gabapentin today that she has been taking daily since surgery. Explained that a could be nerve related pain due to the burning sensation and to go home and take her prescribed gabapentin. Pt well hydrated appearing, in no respiratory distress, hemodynamically stable. Recommend supportive care. The patient is stable at time of discharge the clinical impression was discussed and the patient was given the opportunity to ask questions, which were addressed as completely as possible given the information available at present. Anticipatory guidance and return to care precautions were discussed and the importance of primary care follow-up was stressed and encouraged. The patient voiced understanding of the plan, indications to return, and the need for follow-up. Exam findings show no acute concerns or changes Patient is appropriate for outpatient treatment and follow-up. Differential Diagnosis Differential Diagnosis: Differential diagnostic considerations for wound laceration include laceration, abscess, infected wound Medical Records I have reviewed the following patient records and this information was taken into consideration when formulating the assessment and plan.: previous clinic visits Discharge Plan Discharge Clinical Impression: Visit for wound check Patient Disposition: Home Condition: Stable Instructions: Care For Your Stitches (ED) Additional Instructions: Call and talk to surgeon about symptoms. Continue taking gabapentin. Clean your wound as directed. Carefully wash your wound with soap and water. Pat the area dry with a clean towel. Protect your wound. Your wound can swell, bleed, or split open if it is stretched or bumped. You may need to wear a bandage that supports your wound until it is completely healed. How to minimize a scar: After sutures are removed, keep your scar out of the sun. Use sunblock if your wound is exposed to the sun. You may use OTC silicone pad and/or scar massage with ointment (for 10-15 min a day) after one month. Talk to your doctor if you think you are developing a keloid. Patient Language: Romanian Prescriptions: No Action cyclobenzaprine 10 mg tablet 10 mg PO TID PRN (Reason: muscle spasm) Qty: 20 0RF minoxidil 2.5 mg tablet 2.5 mg semaglutide 0.25 mg or 0.5 mg (2 mg/3 mL) Pen Injector See Rx Instructions .ROUTE .COMPLEX Rx Instructions: for 4 weeks bupropion HCl 300 mg tablet extended release 24 hr PO Follow-up/Referrals: Yvette,Darcie Israel, MEDICAL DONATION PROFESSIONAL [Primary Care Provider, Unknown] - 3 Days Time of Disposition: 15:26
[2025-01-27 14:50] VITALS: BP 131/77; PULSE 105; RESP 14; TEMP 36.7; O2SAT 99
== END 2025-01-27 15:31 | disposition home or self-care (01) ==
PROVIDERS: Emergency Provider Nurse Practitioner Family; PCP Nurse Practitioner Family
DX: Z48.01 Encounter for change or removal of surgical wound dressing (principal); F41.9 Anxiety disorder, unspecified; Z87.891 Personal history of nicotine dependence
CPT/HCPCS: 99212; G0463